=== PATIENT | male | born 1975 | race Caucasian/White ===

== ENCOUNTER 2020-07-10 18:42 | Emergency (ER) | payer OTHER ==
[2020-07-10 19:58] LABS: BASOPHIL 0.3 % (0-2); EOSINOPHIL 0 % (0-5); HCT 48.2 % (42.0-52.0); HGB 16.6 g/dl (13.2-18.0); LYMPHOCYTE 4.9 % (15-48); MCH 29.3 pg (25.0-31.0); MCHC 34.4 g/dL (32.0-36.0); MCV 85.2 fL (78.0-100.0); MONOCYTE 8.6 % (0-12); MPV 11.9 fL (6.0-9.5); NEUTROPHIL 85.4 % (41-80); NRBC 0; PLT 154 K/uL (150-400); RBC 5.66 M/uL (4.70-6.00); RDW 12.7 % (11.5-14.0); WBC 6.3 K/uL (4.0-10.5)
[2020-07-10 20:13] LABS: ALBUMIN 2.9 g/dL (3.4-5.0); BILIRUBIN - TOTAL 1.4 mg/dL (0.2-1.0); BUN/CREAT RATIO (CALC) 27.6 RATIO; CREATININE 0.76 mg/dL (0.67-1.17); POTASSIUM 3.6 mmol/L (3.5-5.1); TOTAL PROTEIN 6.9 g/dL (6.4-8.2)
[2020-07-10 21:50] LABS: BILIRUBIN 2+ mg/dL (NEGATIVE); BLOOD NEGATIVE Ery/uL (NEGATIVE); CLARITY CLEAR (CLEAR); COLOR YELLOW (YELLOW); GLUCOSE (U) NORMAL (NORMAL); LEUKOCYTES NEGATIVE Leu/uL (NEGATIVE); NITRITE NEGATIVE (NEGATIVE); PROTEIN 2+ mg/dL (NEGATIVE); SPECIFIC GRAVITY 1.025 (1.001-1.030); pH 5.5 (5.0-9.0)
[2020-07-10 21:55] LABS: MUCOUS TRACE; SQUAMOUS EPITHELIAL CELLS RARE; URINARY RBC RARE
[2020-07-10] MEDS ORDERED: VENTOLIN HFA18 GM INH (22:29)
== END 2020-07-10 22:48 | disposition home or self-care (01) ==
LOC: FER 18:42
PROVIDERS: Nurse Practitioner Family
DX: U07.1 COVID-19 (principal)
CPT/HCPCS: 36415; 71046; 80053; 81001; 85025; 94640; 94664; J1100; J1885; J7030